=== PATIENT | female | born 1985 | race Caucasian/White ===

== ENCOUNTER 2017-12-09 19:33 | Emergency (ER) | payer SELFPAY ==
[2017-12-09 20:15] VITALS: O2SAT 100
[2017-12-09] MEDS ORDERED: Sodium Chloride 0.9% 1,000 ML IV ONE (20:50)
--- NOTE | 2017-12-09 20:50 | C.PDOC ---
History Of Present Illness 32 year old female presents to the ED c.o right lower abdominal pain associated with some right groin swelling and fever. Patient states also having some vomiting and decreased PO intake. Patient reports pain worsens with movement. Patient denies nausea, diarrhea, dyauria, hematuria, back pain, weakness, numbness. Time Seen by Provider: 12/09/17 20:49 Chief Complaint (Nursing): Abdominal Pain History Per: Patient History/Exam Limitations: no limitations Onset/Duration Of Symptoms: Days Current Symptoms Are (Timing): Still Present Pain Scale Rating Of: 5 Location Of Pain/Discomfort: RLQ Quality Of Discomfort: "Pain" Associated Symptoms: Vomiting, Loss Of Appetite. denies: Fever, Chills Exacerbating Factors: Movement Alleviating Factors: None Recent travel outside of the [place]: No Additional History Per: Patient Abnormal Vaginal Bleeding: No Past Medical History Reviewed: Historical Data, Nursing Documentation, Vital Signs Vital Signs: Last Vital Signs Temp 99.2 F 12/09/17 20:10 Pulse 81 12/09/17 20:10 Resp 22 12/09/17 20:10 BP 108/73 12/09/17 20:10 Pulse Ox 100 12/09/17 21:17 - Medical History PMH: No Chronic Diseases Surgical History: No Surg Hx Family History: States: Unknown Family Hx - Social History Hx Alcohol Use: Yes Hx Substance Use: No - Immunization History Hx Tetanus Toxoid Vaccination: Yes Hx Influenza Vaccination: No Hx Pneumococcal Vaccination: No Review Of Systems Constitutional: Negative for: Fever, Chills Cardiovascular: Negative for: Chest Pain Respiratory: Negative for: Cough, Shortness of Breath Gastrointestinal: Positive for: Abdominal Pain. Negative for: Nausea, Vomiting Genitourinary: Negative for: Dysuria, Hematuria Musculoskeletal: Positive for: Leg Pain Skin: Negative for: Rash Neurological: Negative for: Weakness, Numbness Physical Exam - Physical Exam Appears: Non-toxic, No Acute Distress Skin: Warm, Dry Head: Normacephalic Eye(s): bilateral: Normal Inspection Oral Mucosa: Dry Neck: Supple Chest: Symmetrical Cardiovascular: Rhythm Regular Respiratory: No Rales, No Rhonchi, No Wheezing Gastrointestinal/Abdominal: Soft, Tenderness (RLQ), No Guarding, No Rebound Extremity: Other (right inguinal node tender to palpation ) Extremity: Bilateral: Normal Color And Temperature, Normal ROM Pulses: Left Dorsalis Pedis: Normal, Right Dorsalis Pedis: Normal Neurological/Psych: Oriented x3, Normal Speech Gait: Steady ED Course And Treatment - Laboratory Results Result Diagrams: 12/09/17 21:07 12/09/17 21:07 O2 Sat by Pulse Oximetry: 100 (ON RA ) Pulse Ox Interpretation: Normal Progress Note: Plan: - Labs. - IV fluids. - Zofran 4 mg IVP. - UA Reevaluation Time: 00:06 Reassessment Condition: Improved Medical Decision Making Medical Decision Making: Upon provider reevaluation patient is feeling better, is medically stable, and requires no further treatment in the ED at this time. Patient will be discharged home with Rx for flagyl and zofran . Counseling was provided and all questions were answered regarding diagnosis and need for follow up with dr agrawal. There is agreement to discharge plan. Return if symptoms persist or worsen. Disposition Counseled Patient/Family Regarding: Studies Performed, Diagnosis, Need For Followup, Rx Given - Disposition Referrals: Deni Agrawal DO [Staff Provider] - Disposition: HOME/ ROUTINE Disposition Time: 20:50 Condition: FAIR Additional Instructions: Please return if symptoms recur Prescriptions: Metronidazole [Flagyl] 500 mg PO TID #21 tablet Ondansetron ODT [Zofran ODT] 1 odt PO BID PRN #6 odt PRN Reason: Nausea/Vomiting Instructions: Acute Abdomen (Belly Pain), Adult (DC), Diverticulosis (DC) Forms: [facility] (Mexican) - Clinical Impression Clinical Impression: Abdominal pain, Diverticulosis - Scribe Statement The provider has reviewed the documentation as recorded by the Scribalo Samuel All medical record entries made by the Scribe were at my direction and personally dictated by me. I have reviewed the chart and agree that the record accurately reflects my personal performance of the history, physical exam, medical decision making, and the department course for this patient. I have also personally directed, reviewed, and agree with the discharge instructions and disposition.
[2017-12-09 21:13] LABS: BASO # 0.1 K/uL (0.0-0.2); BASO % 0.7 % (0.0-2.0); EOS # 0.1 K/uL (0.0-0.7); EOS % 0.9 % (0.0-4.0); HEMOGLOBIN 13.5 g/dL (11.0-16.0); LYMPH # 1.8 K/uL (1.0-4.3); LYMPH % 20.7 % (20.0-40.0); MEAN CORPUSCULAR HEMOGLOBIN 33.7 pg (27.0-31.0); MEAN CORPUSCULAR HGB CONC 34.4 g/dL (33.0-37.0); MEAN PLATELET VOLUME 8.4 fL (7.2-11.7); MONO # 0.6 K/uL (0.0-0.8); MONO % 6.6 % (0.0-10.0); NEUT # 6.2 K/uL (1.8-7.0); NEUT % 71.1 % (50.0-75.0); NRBC % 0.1 % (0.0-2.0); RBC 3.99 Mil/uL (3.80-5.20); RED CELL DISTRIBUTION WIDTH 12.5 % (11.5-14.5); WHITE BLOOD COUNT 8.7 K/uL (4.8-10.8)
[2017-12-09 21:23] LABS: INR 1.1; PROTHROMBIN TIME 11.8 SECONDS (9.7-12.2)
[2017-12-09 21:27] LABS: ALB/GLOB RATIO 1.6 (1.0-2.1); ALT/SGPT 37 U/L (9-52); AST/SGOT 26 U/L (14-36); BLOOD UREA NITROGEN 9 mg/dL (7-17); GFR NON-AFRICAN AMERICAN > 60; LIPASE 105 U/L (23-300)
[2017-12-09 21:32] LABS: HCG,QUALITATIVE URINE NEGATIVE (NEGATIVE)
[2017-12-09 21:40] LABS: SQUAMOUS EPITHIAL 9 /hpf (0-5); URINE BACTERIA FEW (<OCC); URINE BILIRUBIN NEGATIVE (NEGATIVE); URINE BLOOD 1+ (NEGATIVE); URINE CLARITY Hazy (Clear); URINE COLOR Yellow (YELLOW); URINE GLUCOSE (UA) NORMAL (Normal); URINE LEUKOCYTE ESTERASE 3+ Leu/uL (Negative); URINE PROTEIN NEGATIVE (NEGATIVE); URINE UROBILINOGEN NORMAL mg/dL (0.2-1.0)
[2017-12-09] MEDS ORDERED: Sodium Chloride 0.9% 1,000 ML ONE (21:46)
[2017-12-09] MEDS ORDERED: Piperacillin/Tazobact 3.375 gm 100 ML IVPB STA (21:47)
[2017-12-09] MEDS ORDERED: Iodixanol 320 MG/ML 100 ML BOTTLE IV ONE (21:55)
[2017-12-09] MEDS ORDERED: Piperacillin/Tazobact 3.375 gm 100 ML IVPB ONE (22:28)
[2017-12-10 00:22] VITALS: BP 119/81; PULSE 70; RESP 16; TEMP 98.5
--- NOTE | 2017-12-10 08:51 | CT ---
Date of service: 12/09/2017 PROCEDURE: CT Abdomen and Pelvis without intravenous contrast HISTORY: Right lower quadrant abdominal pain COMPARISON: None. TECHNIQUE: Multiple contiguous axial images were performed through the abdomen and pelvis with intravenous contrast. Subsequently, sagittal and coronal reformatted images were obtained. Radiation dose: Total exam DLP = 198 mGy-cm. This CT exam was performed using one or more of the following dose reduction techniques: Automated exposure control, adjustment of the mA and/or kV according to patient size, and/or use of iterative reconstruction technique. FINDINGS: LOWER THORAX: Unremarkable. LIVER: Few scattered punctate hypodensities, too small to adequately characterize. GALLBLADDER AND BILE DUCTS: Unremarkable. PANCREAS: Unremarkable. No gross lesion or ductal dilatation. SPLEEN: Unremarkable. ADRENALS: Unremarkable. No mass. KIDNEYS AND URETERS: Unremarkable. No hydronephrosis. No solid mass. VASCULATURE: Unremarkable. No aortic aneurysm. BOWEL: Mild diverticulosis is present in the sigmoid colon and descending colon. Descending colon and sigmoid colon are mildly prominent likely secondary to nondistention versus mild thickening. Clinical correlation. APPENDIX: Unremarkable. Normal appendix. PERITONEUM: Unremarkable. No free fluid. No free air. LYMPH NODES: Shotty inguinal and para-aortic lymph nodes. BLADDER: Unremarkable. REPRODUCTIVE: Intrauterine device place. BONES: Mild sclerosis of the left iliac bone near the SI joint space. OTHER FINDINGS: Multiple calcified phleboliths in the pelvis. IMPRESSION: Mild diverticulosis is present in the sigmoid colon and descending colon. Descending colon and sigmoid colon are mildly prominent likely secondary to nondistention versus mild thickening. Clinical correlation. These findings were preliminarily reported at 11:50 p.m. on 12/09/[address] Beth Dodson from Private Practice.
== END 2017-12-10 00:22 | disposition home or self-care (01) ==
LOC: C.ER 19:33
DX: K57.30 Diverticulosis of large intestine without perforation or abscess without bleeding (principal); N39.0 Urinary tract infection, site not specified
CPT/HCPCS: 74177; 80053; 81001; 83690; 84703; 85025; 85610; 85730; 87086; 96361; 96365; 96375; 99284; J1885; J2405; J2543; J7030; Q9967